=== PATIENT | female | born 1950 | race Caucasian/White ===

== ENCOUNTER 2022-04-24 10:57 | Outpatient (CLI) | payer MEDICARE, MEDICAID | END 2022-04-24 10:58 | disposition home or self-care (01) | LOC: RAD 10:57 | PROVIDERS: ATTEND Internal Medicine Critical Care Medicine | DX: R06.00 Dyspnea, unspecified (principal) | CPT/HCPCS: 71046 ==

== ENCOUNTER 2022-05-21 13:25 | Outpatient (CLI) | payer MEDICARE, MEDICAID ==
[2022-05-21 15:43] LABS: #Eosinphils 0.1 10x3/uL (0.0-0.5); #Neutrophils 6.7 10x3/uL (1.5-8.4); %Basophils 0.3 % (0.0-2.0); %Eosinophils 1.3 % (0.0-6.0); %Lymphocytes 17.1 % (18.0-47.0); %Monocytes 10.3 % (0.0-10.0); %Neutrophils 70.5 % (40.0-75.0); Hemoglobin 12.7 g/dL (12.0-15.5); Mean Corpuscular HGB CONC 33.2 g/dL (32.0-36.0); Mean Corpuscular Hemoglobin 31.7 pg (27.0-33.0); Mean Corpuscular Volume 95.3 fl (81.6-98.3); Mean Platelet Volume 10.2 fl (7.4-10.4); Platelet Count 256 10x3/uL (150-450); RBC Distribution Width 13.8 % (11.5-14.5); Red Blood Cell (RBC) Count 4.01 10x6/uL (3.90-5.03); White Blood Cell (WBC) Count 9.6 10x3/uL (3.5-10.5)
[2022-05-21 16:27] LABS: Anion Gap 15 mmol/L (10-20); BUN (Urea Nitrogen) 19 mg/dL (9.8-20.1); Calc. Creatinine Clearance 0 mL/min (70-130); Calcium 8.8 mg/dL (7.8-10.44); Carbon Dioxide 28 mmol/L (23-31); Chloride 103 mmol/L (98-107); Estimated GFR 81; Glucose 85 mg/dL (83-110); Potassium 4.2 mmol/L (3.5-5.1); Sodium 142 mmol/L (136-145)
== END 2022-05-21 13:26 | disposition home or self-care (01) ==
LOC: LABBT 13:25
PROVIDERS: ATTEND Orthopaedic Surgery Hand Surgery
DX: Z01.818 Encounter for other preprocedural examination (principal); M67.441 Ganglion, right hand; Z20.822 Contact with and (suspected) exposure to COVID-19
CPT/HCPCS: 80048; 85025; 87811; 93005; 93010

== ENCOUNTER 2022-05-26 11:47 | Day surgery (SDC) | payer MEDICARE, MEDICAID ==
[2022-05-23 10:59] VITALS: BMI 36.3
[2022-05-26] MEDS ORDERED: Betamet Acet/Betamet Na Ph 30 MG/5 ML VIAL ONE (13:12)
[2022-05-26] MEDS ORDERED: Bacitracin Zinc Ointment 30 gm TUBE ONE (13:12)
[2022-05-26] MEDS ORDERED: Bupivacaine PF 0.5% 30 ML VIAL ONE (13:12)
[2022-05-26] MEDS ORDERED: Neomycin-Polymyxin 1 ML AMP ONE (13:12)
[2022-05-26] MEDS ORDERED: Sodium Chloride 0.9% 100 ML ONE (14:22)
[2022-05-26] MEDS ORDERED: CEFAZOLIN 2 GM VIAL ONE (14:22)
[2022-05-26] MEDS ORDERED: fentaNYL Citrate/PF 100 MCG/2 ML SYRINGE ONE (14:59)
[2022-05-26] MEDS ORDERED: Dexamethasone 20 MG/5 ML VIAL ONE (15:04)
[2022-05-26] MEDS ORDERED: PROPOFOL 200 MG/20 ML VIAL ONE (15:04)
[2022-05-26] MEDS ORDERED: Ondansetron PF 4 MG/2 ML Vial ONE (15:04)
[2022-05-26] MEDS ORDERED: Lidocaine 1% MPF 2 ML VIAL ONE (15:04)
[2022-05-26] MEDS ORDERED: Fentanyl 100 MCG/2 ML VIAL ONE (16:01)
== END 2022-05-26 17:05 | disposition home or self-care (01) ==
LOC: SDC 11:47
PROVIDERS: ATTEND Orthopaedic Surgery Hand Surgery
PROC: 0RBW0ZZ Excision of Right Finger Phalangeal Joint, Open Approach (ICD-10-PCS; principal; 2022-05-26)
PROC: 0PBT0ZZ Excision of Right Finger Phalanx, Open Approach (ICD-10-PCS; 2022-05-26)
DX: M25.741 Osteophyte, right hand (principal); M25.841 Other specified joint disorders, right hand; M15.1 Heberden's nodes (with arthropathy); J45.909 Unspecified asthma, uncomplicated; I10 Essential (primary) hypertension; Z87.891 Personal history of nicotine dependence; Z79.890 Hormone replacement therapy; Z79.899 Other long term (current) drug therapy; Z88.5 Allergy status to narcotic agent; Z88.8 Allergy status to other drugs, medicaments and biological substances
CPT/HCPCS: 88304; 88305; J0690; J0702; J1100; J2405; J2704; J3010; J3490; S0020

== ENCOUNTER 2023-07-29 13:10 | Outpatient (CLI) | payer MEDICARE, MEDICAID, OTHER | END 2023-07-29 13:11 | disposition home or self-care (01) | LOC: RAD 13:10 | PROVIDERS: ATTEND Internal Medicine Critical Care Medicine | DX: R06.00 Dyspnea, unspecified (principal) | CPT/HCPCS: 71046 ==

== ENCOUNTER 2024-08-24 12:22 | Outpatient (CLI) | payer MEDICARE, OTHER | END 2024-08-24 12:23 | disposition home or self-care (01) | LOC: RAD 12:22 | PROVIDERS: ATTEND Internal Medicine Critical Care Medicine | DX: R06.00 Dyspnea, unspecified (principal) | CPT/HCPCS: 71046 ==